=== PATIENT | male | born 1955 | race Caucasian/White ===

== ENCOUNTER → 2018-12-19 | Outpatient (CLI) | payer MEDICARE ==
[~2018-12-19] MED LIST: IOPAMIDOL 370 MG/ML 200 ML INFUS..BTL INJ ONE; SODIUM CHLORIDE 0.9% 50ML 50 ML ONE
[2018-12-19 09:31] LABS: BLOOD UREA NITROGEN 22 mg/dL (7-26); BUN/CREATININE RATIO 19 (6-25); CREATININE, SERUM 1.14 mg/dL (0.72-1.25); EST GLOMERULAR FILTRATION RATE > 60 ML/MIN (60-)
--- NOTE | 2018-12-19 11:33 | Diagnostic Imaging Report ---
CTA OF THE ABDOMEN, PELVIS AND BILATERAL LOWER EXTREMITIES WITH CONTRAST. INDICATION: Abdominal aortic aneurysm, peripheral arterial disease COMPARISON: None. TECHNIQUE: Abdomen and pelvis were scanned utilizing a multidetector helical scanner from the lung base to the pubic symphysis after administration of IV contrast. Coronal and sagittal reformations were obtained. Coronal and sagittal multiplanar reformations were obtained. RADIATION DOSE: Total DLP: 617.58 mGy*cm Dose modulation, iterative reconstruction, and/or weight based adjustment of the mA/kV was utilized to reduce the radiation dose to as low as reasonably achievable. FINDINGS: Vascular: Abdominal aorta: There is prominent atherosclerotic calcifications of the abdominal aorta and its branch vessels. The celiac artery is patent with less than 50% luminal narrowing at its origin. The origin of the SMA is patent with 50-70% luminal narrowing at its origin. There is a single right renal artery which is patent. The main left renal artery is patent. There is an accessory left renal artery supplying the inferior pole the left kidney. There is luminal narrowing of the abdominal aorta with complete occlusion occurring at the infrarenal abdominal aorta. There is aneurysmal dilatation of the occluded infrarenal abdominal aorta measuring up to 3.0 x 3.0 cm. The distal abdominal aorta and bilateral iliac arteries are occluded. There is reconstitution of the external iliac arteries via the mammary arteries to the epigastric arteries (Krystina pathway). Right lower extremity: The right common femoral artery is patent with atherosclerotic plaquing resulting in approximately 50% luminal narrowing. The SFA is patent with plaquing resulting in 50-70% luminal narrowing. The right popliteal artery is patent with extensive plaquing resulting in greater than 70% luminal narrowing. The anterior tibial artery is patent to level of the distal calf and appears occluded reconstituting just proximal to the dorsalis pedis. The posterior tibial and peroneal artery are patent to the level the ankle. Left lower extremity: The left common femoral arteries patent with atherosclerotic plaquing resulting in less than 50% luminal narrowing. The SFA is patent with plaquing resulting in 50-70% luminal narrowing. The left popliteal artery is patent with plaquing resulting in less than 50% luminal narrowing. The left anterior tibial, posterior tibial, and peroneal arteries are patent to the level of the ankle. Nonvascular: There is mild basilar atelectasis. Lung bases otherwise unremarkable. The imaged portion of the heart and straits no significant abnormalities. The liver is normal in size and attenuation. There is a subcentimeter hypodensity identified within the right hepatic lobe which is too small to definitively characterize. The stomach, spleen, pancreas, and bilateral adrenal glands are unremarkable. The kidneys are normal in size and location and concentrate contrast material properly. There is no evidence for hydronephrosis. The ureters are normal course and caliber. The urinary bladder is unremarkable. The prostate contains calcification but is otherwise unremarkable. Please note evaluation of bowel is limited without the use of enteric contrast material. The visualized loops of small and large bowel demonstrate no evidence of obstruction or inflammation. There is no ascites or intraperitoneal free air. No abnormally enlarged lymph nodes are identified within the abdomen or pelvis. There is a small fat-containing left inguinal hernia. The osseous structures demonstrate degenerative changes without evidence for acute fracture or destructive process. The extra peritoneal soft tissues are unremarkable. IMPRESSION: 1. 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 There is reconstitution of the external iliac arteries via collaterals. 2. Aneurysmal dilatation of the occluded infrarenal abdominal aorta measuring up to 3.0 cm. Follow-up is recommended every 3 years. 3. Peripheral arterial disease with two-vessel runoff on the right and three-vessel runoff on the left as detailed above. Signed by: Dr. Rajinder More MD on 12/19/2018 11:29 AM
== END ==
LOC: CT 08:40
PROVIDERS: ATTEND Internal Medicine Interventional Cardiology
DX: I71.4 Abdominal aortic aneurysm, without rupture (principal); I73.9 Peripheral vascular disease, unspecified
CPT/HCPCS: 36415; 75635; 82565; 84520; Q9967

== ENCOUNTER → 2021-02-10 | Day surgery (SDC) | payer MEDICARE ==
[2021-02-06 12:59] LABS: BASOPHILS % 0.3 % (0.0-1.0); EOSINOPHILS # (AUTO) 0.2 (0.0-0.4); EOSINOPHILS % 2.8 % (0.0-6.0); HEMATOCRIT 39.5 % (38.2-49.6); HEMOGLOBIN 12.5 g/dL (14.0-18.0); LYMPHOCYTES # (AUTO) 1.2 (1.0-3.2); LYMPHOCYTES % 20.7 % (18.0-39.1); MEAN CORPUSCULAR HEMOGLOBIN 28.7 pg (28-32); MEAN CORPUSCULAR HGB CONC 31.6 g/dL (31-35); MEAN CORPUSCULAR VOLUME 90.8 fL (81-99); MONOCYTES # (AUTO) 0.6 (0.2-0.8); MONOCYTES % 9.2 % (4.4-11.3); NEUTROPHILS % 66.8 % (38.7-80.0); PLATELET COUNT 151 x10e3/uL (140-360); RED BLOOD COUNT 4.35 x10e6/uL (4.3-5.7); RED CELL DISTRIBUTION WIDTH 14.5 % (11.7-14.4)
[2021-02-06 13:27] LABS: ALBUMIN 4.6 g/dL (3.5-5.0); ALBUMIN/GLOBULIN RATIO 1.8 (0.8-2.0); CALCIUM 9.7 mg/dL (8.4-10.2); CREATININE, SERUM 1.09 mg/dL (0.72-1.25)
[2021-02-10] VITALS (13 sets, daily range): BP systolic 110–137; BP diastolic 45–99
[~2021-02-10] VITALS: Ht 180.3 cm; Wt 57.2 kg
[~2021-02-10] MED LIST changes: +ATORVASTATIN CA10 MG PO; +CLOPIDOGREL75 MG PO; +FENTANYL CITRATE/PF 100MCG/2 ML INJ ONE; +HEPARIN SOD/SOD CHLORIDE 2,000 ML ONE; +LAMOTRIGINE100 MG PO; +LIDOCAINE HCL 2% LOCAL 20 ML VIAL ONE; +LISINOPRIL10 MG PO; +MIDAZOLAM HCL 2 MG/2 ML VIAL ONE; +QUETIAPINE FUMA25 MG PO; +SERTRALINE HCL100 MG PO; +SERTRALINE HCL50 MG PO; +SODIUM CHLORIDE 0.9% 1000ML 1,000 ML ONE; -SODIUM CHLORIDE 0.9% 50ML 50 ML ONE; +VERAPAMIL HCL 2.5 MG/ML 2 ML VIAL ONE
== END | disposition home or self-care (01) ==
LOC: CATH LAB 14:54
PROVIDERS: ATTEND Internal Medicine Interventional Cardiology
DX: I25.708 Atherosclerosis of coronary artery bypass graft(s), unspecified, with other forms of angina pectoris (principal); R94.39 Abnormal result of other cardiovascular function study; I73.9 Peripheral vascular disease, unspecified; Z79.02 Long term (current) use of antithrombotics/antiplatelets; Z79.899 Other long term (current) drug therapy; Z95.1 Presence of aortocoronary bypass graft
CPT/HCPCS: 36415; 75605; 76937; 80053; 85025; 93455; C1769; C1887; C1894; J2001; J2250; J3010; J7030; Q9967; U0002; 99152